=== PATIENT | male | born 1960 | race Caucasian/White ===

== ENCOUNTER 2019-03-15 02:10 | Emergency (ER) | payer OTHER ==
[2019-03-15] MEDS ORDERED: TETRACAINE 0.5% 4 ML OPH (03:20)
[2019-03-15] MEDS ORDERED: FLUORESCEIN STRIP (03:21)
[2019-03-15] MEDS ORDERED: HYDROCODONE/APAP (5/325) TAB PO (04:30)
[2019-03-15] MEDS: HYDROCODONE/APAP (5/325) TAB PO (04:45)
== END 2019-03-15 04:46 | disposition home or self-care (01) ==
LOC: E/R 02:10 → FTE 04:46
DX: H16.133 Photokeratitis, bilateral (principal); F17.210 Nicotine dependence, cigarettes, uncomplicated
CPT/HCPCS: 99283; Z7502